=== PATIENT | female | born 1975 | race Caucasian/White ===

== ENCOUNTER 2019-09-05 06:04 | Day surgery (SDC) | payer OTHER ==
[2019-08-29 15:26] LABS: BASOPHILS # (AUTO) 0.1 X10'3 (0-0.2); BASOPHILS % (AUTO) 0.8 % (0-1); EOSINOPHILS # (AUTO) 0.5 X10'3 (0-0.9); EOSINOPHILS % (AUTO) 6.5 % (0-6); LYMPHOCYTES # (AUTO) 2.3 X10'3 (1.1-4.8); LYMPHOCYTES % (AUTO) 31.2 % (21-51); MEAN CORPUSCULAR HEMOGLOBIN 33.7 PG (27.0-31.0); MEAN CORPUSCULAR HGB CONC 35.1 g/dL (33.0-36.5); MEAN CORPUSCULAR VOLUME 96.1 FL (78-98); MEAN PLATELET VOLUME 7.1 FL (7.4-10.4); MONOCYTES # (AUTO) 0.4 X10'3 (0-0.9); MONOCYTES % (AUTO) 5.6 % (2-12); NEUTROPHILS % (AUTO) 55.9 % (42-75); PRE OP HEMATOCRIT 37.7 % (35.0-45.0); PRE OP HEMOGLOBIN 13.2 g/dL (12.0-16.0); PRE OP PLATELET COUNT 250 X10'3 (140-440); RED BLOOD COUNT 3.92 X10'6 (4.20-5.60); RED CELL DISTRIBUTION WIDTH 13.1 % (11.5-14.5)
[2019-08-29 15:41] LABS: ALBUMIN/GLOBULIN RATIO 1.2 (1.1-1.5); ALKALINE PHOSPHATASE 37 IU/L (46-116); BLOOD UREA NITROGEN 10 MG/DL (7-18); BUN/CREATININE RATIO 14.7 (6.6-38.0); CALCIUM 9.1 MG/DL (8.5-10.1); CHLORIDE 104 MMOL/L (99-107); CREATININE 0.68 MG/DL (0.40-0.90); PRE OP ALT 26 U/L (30-65); PRE OP ANION GAP 4 (8-16); PRE OP AST 17 U/L (10-37); PRE OP BILIRUB, TOTAL 0.4 MG/DL (0.0-1.0); PRE OP GLUCOSE 103 MG/DL (70-104); PRE OP POTASSIUM 3.6 MMOL/L (3.4-5.1); PRE OP SODIUM 141 MMOL/L (135-145); TOTAL CARBON DIOXIDE 32.7 MMOL/L (24-32); TOTAL PROTEIN 7.3 G/DL (6.4-8.2); eGFR > 90 ML/MIN
[2019-08-29 15:43] LABS: HCG SERUM QL NEGATIVE
[~2019-09-05] VITALS: Ht 165.1 cm; Wt 65.1 kg
[2019-09-05] VITALS (9 sets, daily range): BP systolic 105–124; BP diastolic 64–94
[~2019-09-05 06:04] MED LIST: ACET-2119 PO; ASCO500T28 PO; CHOL100044 PO; FAMO40TA7 PO; LORA10TA61 PO; PRAV40TA3 PO; PYRI50TA13 PO; ZOLP10TA5 PO
[2019-09-05] MEDS ORDERED: famotidine 20mg tablet PO ONE (06:30)
[2019-09-05] MEDS ORDERED: ringers solution, lacted 1,000 ML IV SCH ×2 (06:30→07:11)
[2019-09-05] MEDS ORDERED: fentaNYL/PF 50MCG/1 ML 2ML syringe IV PRN (07:15)
[2019-09-05] MEDS ORDERED: hydrALAZINE 20mg/ml inj. IV PRN (07:15)
[2019-09-05] MEDS ORDERED: ondansetron/PF 4mg/2ml inj IV PRN (07:15)
[2019-09-05] MEDS ORDERED: morphine 4 MG/ML inj SYRINge IV PRN ×2 (07:15)
[2019-09-05] MEDS ORDERED: labetalol 20mg/4ml (5mg/ml) syringe IV PRN (07:15)
[2019-09-05] MEDS ORDERED: propofol inj 20 ML IV ONE (07:21)
[2019-09-05] MEDS ORDERED: LIDOcaine 2% (20mg/ml) 5ml vial ONE (07:21)
[2019-09-05] MEDS ORDERED: ondansetron/PF 4mg/2ml inj ONE (07:21)
[2019-09-05] MEDS ORDERED: glycopyrrolate 0.2mg/ml inj ONE (07:21)
[2019-09-05] MEDS ORDERED: neostigmine methylsulfate 1 MG/ML 10ml vial ONE (07:21)
[2019-09-05] MEDS ORDERED: rocuronium 10mg/ml inj IV ONE (07:22)
[2019-09-05] MEDS ORDERED: ceFOXitin 2 GM ADDvantage bag 100 ML IV ONE (07:48)
[2019-09-05] MEDS ORDERED: BUPIVAcaine/PF 2.5 mg/ml (0.25%) 30ml vial ONE (08:41)
[2019-09-05] MEDS ORDERED: neomy sulf/polymyxin B sulf. GU irrigation 1ml amp IR ONE (08:48)
[2019-09-05] MEDS ORDERED: sevoflurane 250ml liquid IH ONE (08:55)
[2019-09-05] MEDS ORDERED: fentaNYL/PF 50MCG/1 ML 2ML syringe ONE (09:02)
[2019-09-05] MEDS ORDERED: midazolam 2 mg/2 ml injection ONE (09:03)
[2019-09-05] MEDS ORDERED: dexamethasone sod phosphate 4mg/ml inj. ONE (09:09)
[2019-09-05] MEDS ORDERED: ketorolac trometh. 30mg/ml inj. ONE (10:00)
[2019-09-05] MEDS: fentaNYL/PF 50MCG/1 ML 2ML syringe IV PRN ×2 (10:18→10:30)
--- NOTE | 2019-09-05 10:20 | NUR ---
Received from OR via BED , accompanied by Anesthesiologist DR MITCHELL and report given by Anesthesiolgist. PATIENT WAKING UP, DENIES, V/S WNL, NEUROVASCULAR CHECKS INTACT, 20G PIV LUE, SCD ON, DERMABONDED TO LAP SIGHTS OF ABDOMEN AND WITH PERIPAD WITH SCANT DRAINAGE CDI.
--- NOTE | 2019-09-05 11:30 | NUR ---
PATIENT A&OX4, DENIES, V/S WNL, NEUROVASCULAR CHECKS INTACT, 20G PIV D/C, SCD OFF, DEMABONDED TO LAP SIGHTS OF ABDOMEN . FRESH TILA PAD GIVEN TO PATIENT. I HAVE REVIEWED D/C INSTRUCTIONS WITH PATIENT AND FAMILY AND THEY HAVE VERBALIZED UNDERSTANDING. PATIENT D/C HOME WITH FAMILY TO TRANSPORT AND ALL BELONGINGS
== END 2019-09-05 11:30 | disposition home or self-care (01) ==
LOC: PAS 06:04
PROVIDERS: ATTEND Specialist
DX: Z30.2 Encounter for sterilization (principal); N92.0 Excessive and frequent menstruation with regular cycle; N83.02 Follicular cyst of left ovary; M19.90 Unspecified osteoarthritis, unspecified site; Z87.891 Personal history of nicotine dependence; Z88.8 Allergy status to other drugs, medicaments and biological substances; Z88.1 Allergy status to other antibiotic agents; Z98.890 Other specified postprocedural states; Z79.899 Other long term (current) drug therapy
CPT/HCPCS: 36415; 58563; 58661; 58670; 80053; 82948; 84703; 85025; 86885; 86900; 86901; A4264; J0694; J1100; J1885; J2001; J2250; J2270; J2405; J2704; J2710; J3010; J3490; A4355; A4618; A7000; J7120